=== PATIENT | female | born 1985 | race African-American/Black ===

== ENCOUNTER 2018-04-19 04:07 | Emergency (ER) | payer OTHER ==
[~2018-04-19] VITALS: Ht 165.1 cm; Wt 82.0 kg
[2018-04-19 05:16] LABS: CHLORIDE 105 mEq/L (98-107)
[2018-04-19 05:32] LABS: BASOPHILS % 0.8 % (0.0-2.0); HEMATOCRIT. 38.8 % (36.0-48.0); LYMPHOCYTES % 13.6 % (20.0-50.0); MEAN CORPUSCULAR HEMOGLOBIN 29.2 pg (28.0-32.0); MEAN CORPUSCULAR VOLUME 87.3 fL (81.0-99.0); MEAN PLATELET VOLUME 9.2 fl (7.4-10.4); MONOCYTES % 6.3 % (2.0-8.0); NEUTROPHILS % 78.3 % (40.0-76.0); PLATELET 226 x1000/uL (130-400); RED BLOOD CELL COUNT 4.44 mill/uL (4.2-5.4); RED CELL DISTRIBUTION WIDTH 13.3 % (11.6-14.6)
[2018-04-19 05:40] LABS: B-HCG QUANTITATIVE 4357 mIU/mL (<3)
[2018-04-19 06:05] LABS: *AMPHETAMINES SCREEN URINE NEGATIVE (NEGATIVE); *BARBITURATES SCREEN URINE NEGATIVE (NEGATIVE); *BENZODIAZEPINES SCREEN URINE NEGATIVE (NEGATIVE); *COCAINE SCREEN URINE NEGATIVE (NEGATIVE); METHADONE URINE SCREEN NEGATIVE (NEGATIVE); OPIATES URINE SCREEN NEGATIVE (NEGATIVE); PHENCYCLIDINE URINE SCREEN NEGATIVE (NEGATIVE)
[2018-04-19 06:12] VITALS: BP 152/92
[2018-04-19 06:15] LABS: CANNABINOID URINE SCREEN PRESUMTIVE POSITIVE (NEGATIVE)
[2018-04-19 06:16] LABS: CLARITY URINE CLEAR (CLEAR); COLOR URINE YELLOW (YELLOW); KETONES URINE NEGATIVE (NEGATIVE); LEUKOCYTE ESTERASE URINE NEGATIVE (NEGATIVE); NITRITE URINE NEGATIVE (NEGATIVE); OCCULT BLOOD URINE 3+ (NEGATIVE); PH URINE 5.5 (4.5-8.0); PROTEIN URINE 2+ (NEGATIVE); SPECIFIC GRAVITY URINE 1.008 (1.005-1.030); UROBILINOGEN URINE 0.2 E.U./dL (0.2-1.0)
== END 2018-04-19 07:27 | disposition home or self-care (01) ==
LOC: ER 04:07
DX: O03.4 Incomplete spontaneous abortion without complication (principal); O26.891 Other specified pregnancy related conditions, first trimester; E11.9 Type 2 diabetes mellitus without complications; I10 Essential (primary) hypertension; Z3A.01 Less than 8 weeks gestation of pregnancy
CPT/HCPCS: 36415; 76801; 80305; 84702; 86850; 86900; 99285

== ENCOUNTER 2023-09-05 03:57 | Emergency (ER) | payer MEDICAID, OTHER ==
[~2023-09-05] VITALS: Ht 165.1 cm; Wt 84.0 kg
[2023-09-05 04:31] VITALS: BP 158/93; PULSE 97; RESP 14; TEMP 98; O2SAT 99
[2023-09-05 05:23] LABS: CLARITY URINE CLEAR (CLEAR); COLOR URINE YELLOW (YELLOW); GLUCOSE URINE NEGATIVE (NEGATIVE); KETONES URINE NEGATIVE (NEGATIVE); LEUKOCYTE ESTERASE URINE 2+ (NEGATIVE); NITRITE URINE NEGATIVE (NEGATIVE); OCCULT BLOOD URINE 3+ (NEGATIVE); PH URINE 7.5 (4.5-8.0); PROTEIN URINE TRACE (NEGATIVE); SPECIFIC GRAVITY URINE 1.003 (1.005-1.030); UROBILINOGEN URINE 0.2 E.U./dL (0.2-1.0)
[2023-09-05] MEDS: IBUPROFEN 600MG TABLET PO STA (06:38)
[2023-09-05] MEDS: CEFTRIAXONE SODIUM 1G VIAL IM NR (06:38)
[2023-09-05] MEDS: LIDOCAINE HCL 1% 20ML VIAL (Pyxis) INJ INFIL NR (06:38)
[2023-09-05] MEDS ORDERED: NAPR-681 PO (07:04)
[2023-09-05] MEDS ORDERED: PHEN-910 MT (07:04)
[2023-09-05] MEDS ORDERED: SULF1TAB48 MT (07:04)
[2023-09-05] MEDS ORDERED: METR-167 MT (07:04)
[2023-09-05 08:43] LABS: SQUAMOUS EPITHELIAL CELL URINE FEW /lpf (RARE/1+)
[2023-09-05 08:46] LABS: WBC URINE 15-25 /hpf (0-2)
[2023-09-05 08:47] LABS: RBC URINE 0-2 /hpf (0-2)
[2023-09-05 08:48] LABS: BACTERIA URINE NONE SEEN
== END 2023-09-05 07:14 | disposition home or self-care (01) ==
LOC: ER 03:57
DX: N39.0 Urinary tract infection, site not specified (principal)
CPT/HCPCS: 81003; 87086; 96372; 99283; J0696; J3490; Z7610 ×2